=== PATIENT | female | born 1995 | race Asian ===

== ENCOUNTER 2017-01-05 03:19 | Emergency (ER) | payer OTHER ==
[2017-01-05] MEDS ORDERED: ONDANSETRON 4 MG/2 ML VIAL IVP STA (03:31)
[2017-01-05] MEDS ORDERED: SODIUM CHLORIDE 0.9% 1,000 ML IV ONE (03:31)
[2017-01-05] MEDS ORDERED: ONDANSETRON 4 MG/2 ML VIAL ONE (03:37)
--- NOTE | 2017-01-05 03:42 | ED Physician Documentation ---
PD HPI NVD - Stated complaint Stated Complaint: VOMITING,WEAKNESS,[place] - Chief complaint Chief Complaint: General - History obtained from History obtained from: Patient, Family - History of Present Illness Timing - onset: Yesterday Timing - details: Gradual onset, Still present Associated symptoms: Fever, Other (generalized weakness) Contributing factors: No: Sick contact, Bad food, Travel, Recent antibiotics Worsened by: Eating Similar symptoms before: Has not had sx before Recently seen: Not recently seen - Additonal information Additional information: Patient is a 21 year old female with no significant past medical history who is presenting to the emergency department for vomiting and generalized weakness. patient states that the symptoms have been going on for the last few days. Patient denies diarrhea, vaginal bleeding, vaginal discharge or dysuria. Review of Systems Constitutional: reports: Fever. denies: Chills, Myalgias Eyes: denies: Loss of vision, Photophobia Ears: denies: Ear pain, Drainage/discharge Nose: denies: Rhinorrhea / runny nose, Congestion Throat: denies: Sore throat Cardiac: denies: Palpitations Respiratory: denies: Cough, Wheezing GI: reports: Nausea, Vomiting. denies: Abdominal Pain, Constipation, Diarrhea : denies: Dysuria, Frequency, Hesitancy Musculoskeletal: denies: Neck pain, Back pain Neurologic: reports: Generalized weakness. denies: Focal weakness, Numbness, Difficulty speaking Psychiatric: denies: Depressed, Suicidal Immunocompromised: denies: Immunocompromised PD PAST MEDICAL HISTORY - Present Medications Home Medications: Ambulatory Orders Medication Instructions Recorded Confirmed Ondansetron Odt [Zofran] 4 mg TL Q6H PRN #14 tablet 01/05/17 - Allergies Allergies/Adverse Reactions: Allergies Allergy/AdvReac Type Severity Reaction Status Date / Time No Known Drug Allergies Allergy Verified 01/05/17 03:31 PD ED PE NORMAL - Vitals Vital signs reviewed: Yes - General General: Alert and oriented X 3, No acute distress - HEENT HEENT: Atraumatic, PERRL, Moist mucous membranes - Neck Neck: Supple, no meningeal sign - Cardiac Cardiac: No murmur - Back Back: No CVA TTP - Derm Derm: Normal color, No rash - Extremities Extremities: No deformity, No tenderness to palpate, No edema - Neuro Neuro: Alert and oriented X 3, qa tester 2-12 intact, No motor deficit, No sensory deficit, Normal speech - Psych Psych: Normal mood, Normal affect PD ED PE EXPANDED - Cardiac Cardiac: Tachy - Respiratory Respiratory: Clear to ausultation tong - Abdomen Abdomen: Tender to palpation, Generalized/diffuse, Other. No: Rebound, Guarding - Derm Derm: Other (moist) Results - Vitals Vitals: Vital Signs - 24 hr 01/05/17 03:28 Temperature 37.8 C H Heart Rate 111 H Respiratory 18 Rate Blood Pressure 120/64 O2 Saturation 99 Oxygen O2 Source Room air - Labs Labs: Laboratory Tests 01/05/17 01/05/17 01/05/17 03:35 03:35 03:35 WBC 11.1 H RBC 4.54 Hgb 13.2 Hct 39.1 MCV 86.1 MCH 29.1 MCHC 33.8 RDW 12.4 Plt Count 169 MPV 6.8 L Neut # 9.1 H Lymph # 0.9 L Riley # 1.0 Eos # 0.0 Baso # 0.0 Absolute Nucleated RBC 0.00 Nucleated RBCs 0.0 Sodium 131 L Potassium 3.5 Chloride 96 L Carbon Dioxide 23 Anion Gap 12.0 BUN 12 Creatinine 0.7 Estimated GFR (MDRD) 105 Glucose 128 H Calcium 8.9 Total Bilirubin 1.2 H AST 59 H ALT 57 Alkaline Phosphatase 170 H Total Protein 8.6 H Albumin 4.0 Globulin 4.6 H Albumin/Globulin Ratio 0.9 L Lipase 16 L Serum HCG, Qual NEGATIVE Urine Color Urine Clarity Urine pH Ur Specific Foley Urine Protein Urine Glucose (UA) Urine Ketones Urine Occult Blood Urine Nitrite Urine Bilirubin Urine Urobilinogen Ur Leukocyte Esterase Ur Microscopic Review Urine Culture Comments Urine HCG, Qual 01/05/17 03:50 WBC RBC Hgb Hct MCV MCH MCHC RDW Plt Count MPV Neut # Lymph # Riley # Eos # Baso # Absolute Nucleated RBC Nucleated RBCs Sodium Potassium Chloride Carbon Dioxide Anion Gap BUN Creatinine Estimated GFR (MDRD) Glucose Calcium Total Bilirubin AST ALT Alkaline Phosphatase Total Protein Albumin Globulin Albumin/Globulin Ratio Lipase Serum HCG, Qual Urine Color DARK YELLOW Urine Clarity CLEAR Urine pH 6.0 Ur Specific Foley 1.015 Urine Protein TRACE Urine Glucose (UA) NEGATIVE Urine Ketones 40 H Urine Occult Blood MODERATE H Urine Nitrite NEGATIVE Urine Bilirubin NEGATIVE Urine Urobilinogen 4 H Ur Leukocyte Esterase NEGATIVE Ur Microscopic Review INDICATED Urine Culture Comments Not Reportable Urine HCG, Qual NEGATIVE PD MEDICAL DECISION MAKING - ED course Complexity details: reviewed results, re-evaluated patient, considered differential, d/w patient, d/w family ED course: Patient was seen and examined at bedside. iV access was gained and labs were drawn. patient was started on a fluid bolus and treated with zofran 4mg. Upon re-evaluation patient stated she was feeling much better. patient was able to tolerate PO without difficulty. You should take zofran for nausea and stay well hydrated. You may return to the emergency department at any time for new, worsening or uncontrollable symptoms. Departure - Departure Disposition: 01 Home, Self Care Clinical Impression: Gastroenteritis Condition: Good Instructions: ED Gastroenteritis Viral Follow-Up: primary,care provider [Other] - As Needed Prescriptions: Ondansetron Odt [Zofran] 4 mg TL Q6H PRN #14 tablet PRN Reason: Nausea / Vomiting Comments: Your symptoms today are likely secondary to viral enteritis. it is important that you take zofran for nausea and stay well hydrated. You should follow up with your pmd if your symptoms persist. You can return to the emergency department at any time for new, worsening or uncontrollable symptoms.
[2017-01-05 03:45] LABS: BASOPHILS % (AUTO) 0.3 %; HCT - HEMATOCRIT 39.1 % (37.0-47.0); HGB - HEMOGLOBIN 13.2 g/dL (12.0-16.0); LYMPHOCYTES # (AUTO) 0.9 10^3/uL (1.5-3.5); LYMPHOCYTES % (AUTO) 8.1 %; MEAN CORPUSCULAR HEMOGLOBIN 29.1 pg (27.0-31.0); MEAN CORPUSCULAR HGB CONC 33.8 g/dL (32.0-36.0); MEAN CORPUSCULAR VOLUME 86.1 fL (81.0-99.0); MEAN PLATELET VOLUME 6.8 fL (7.9-10.8); MONOCYTES % (AUTO) 9.3 %; NEUTROPHILS # (AUTO) 9.1 10^3/uL (1.5-6.6); NEUTROPHILS % (AUTO) 82.3 %; RED BLOOD COUNT 4.54 10^6/uL (4.20-5.40); RED CELL DISTRIBUTION WIDTH 12.4 % (12.0-15.0); UNCORRECTED WHITE BLOOD COUNT 11.1 x10^3/uL; WHITE BLOOD COUNT 11.1 x10^3/uL (4.8-10.8)
[2017-01-05 03:57] LABS: ALBUMIN/GLOBULIN RATIO 0.9 (1.0-2.2); BILIRUBIN,TOTAL 1.2 mg/dL (0.2-1.0); CALCIUM 8.9 mg/dL (8.5-10.3); CREATININE 0.7 mg/dL (0.4-1.0); POTASSIUM 3.5 mmol/L (3.5-5.0); TOTAL PROTEIN 8.6 g/dL (6.7-8.2)
[2017-01-05 04:02] LABS: BILIRUBIN,URINE NEGATIVE (NEGATIVE)
[2017-01-05 04:04] LABS: HCG UR QUAL NEGATIVE; UA w/ MICROSCOPIC CHARGE YES
[2017-01-05 04:34] VITALS: BP 118/72
[2017-01-05 04:35] LABS: UR CULTURE IF IND NOT INDICATED; WBC,URINE 0-3 /HPF (0-5)
== END 2017-01-05 04:40 | disposition home or self-care (01) ==
LOC: ED 03:19 → EDBD 03:19 → ED 04:40
DX: K52.9 Noninfective gastroenteritis and colitis, unspecified (principal)
CPT/HCPCS: 36415; 80053; 81001; 81003; 81025; 83690; 84703; 85025; 87086; 96374; 99283; 99284